=== PATIENT | male | born 1960 | race Caucasian/White ===

== ENCOUNTER 2017-02-26 23:09 | Emergency (ER) | payer SELFPAY ==
[~2017-02-26] VITALS: Ht 180.3 cm; Wt 65.8 kg
[~2017-02-26 23:09] MED LIST: ATARAX,VISTARIL25 MG PO; BACTRIM,SEPT1 TABLET PO; BENADRYL50 MG PO; HYDROCORTISONE30 G1 TP; KEFLEX500 MG PO; MULTIVITAMIN1 EAC2 PO; NAPROSYN500 MG PO; NO HOME MEDS; NOHOMEMEDS; PERCOCET 5/31 TABLET PO; TESSALON200 MG PO
[2017-02-27] MEDS ORDERED: KEFLEX500 MG PO (00:42)
[2017-02-27 01:19] VITALS: BP 143/79
== END 2017-02-27 01:19 | disposition hospice, inpatient (51) ==
LOC: EME 23:09 → RME 23:09
PROC: 3E0234Z Introduction of Serum, Toxoid and Vaccine into Muscle, Percutaneous Approach (ICD-10-PCS; principal; 2017-02-26)
DX: S62.630B Displaced fracture of distal phalanx of right index finger, initial encounter for open fracture (principal); S61.212A Laceration without foreign body of right middle finger without damage to nail, initial encounter; W22.8XXA Striking against or struck by other objects, initial encounter; Z23 Encounter for immunization; F17.200 Nicotine dependence, unspecified, uncomplicated
CPT/HCPCS: 73130; 99281; 99283